=== PATIENT | male | born 1995 | race Caucasian/White ===

== ENCOUNTER 2017-12-17 10:46 | Day surgery (SDC) | payer MEDICARE, MEDICAID ==
[~2017-12-17] VITALS: Ht 182.9 cm; Wt 71.2 kg
[~2017-12-17 10:46] MED LIST: ACET325T49 PO; CALC500T7 PO; CLON0.5T3 PO; CLON1TAB27 PO; DIPH25TA31 PO; DIVA125T3 PO; EUCA1LOZ28 PO; GLYC1TAB11 PO; GUAI237L82 PO; IBUP200C75 PO; LAMO100T4 PO; LOPE-145 PO; MAGN400O7 PO; NPB.9O TP; TETR15DR74 OP
[2017-12-17 10:50] VITALS: BP 130/81
[2017-12-17] MEDS ORDERED: LACTATED RINGERS 1,000 ML IV PRN (10:57)
--- OUTSIDE RECORDS SUMMARY | 2017-12-17 11:15 | XMS REPORT ---
Author Author DOMO MCCANN [facility] eClinicalWorks Address Unknown Phone Unavailable Care Team Providers Care Iron Worker Apprentice Name Role Phone DOMO MCCANN CP Unavailable Allergies No Known Allergies Problems Problem Type Condition Code Onset Dates Condition Status Assessment Dental examination Z01.20 Active Problem Other general medical examination for administrative purposes V70.3 Active Medications No Known Medications Procedures Procedure Coding System Code Date INTRAORL-PERIAPICAL 1 FILM 67034 CPT-4 D0220 February 02, 2016 INTRAORL-PERIAPICAL EA ADD FILM CPT-4 D0230 February 02, 2016 COMP ORAL EVALUATION - NEW/EST PT CPT-4 D0150 February 02, 2016 INTRAORL-PERIAPICAL EA ADD FILM CPT-4 D0230 February 02, 2016 INTRAORL-PERIAPICAL EA ADD FILM CPT-4 D0230 February 02, 2016 BITEWINGS - TWO FILMS CPT-4 D0272 February 02, 2016 Results No Known Results Summary Purpose eClinicalWorks Submission
--- OUTSIDE RECORDS SUMMARY | 2017-12-17 11:15 | XMS REPORT ---
Author Author JACOB SPARKS Organization [facility] Address [address] [place] [address] Phone Unavailable Care Team Providers Care Chef French Name Role Phone JACOB SPARKS Unavailable Unavailable PROBLEMS Type Condition ICD9-CM Code [id number] Code Onset Dates Condition Status SNOMED Code Problem Other general medical examination for administrative purposes V70.3 Active [id number] ALLERGIES No Known Allergies SOCIAL HISTORY Never Assessed PLAN OF CARE Activity Details Follow Up WE WILL CALL [facility] Reason:RESTORATIVE WITH DR MCCANN VITAL SIGNS MEDICATIONS Medication Instructions Dosage Frequency Start Date End Date Duration Status LaMICtal ODT 100 MG Orally Twice a day 1 tablet on the tongue and allow to dissolve 12h Active Valproic Acid 250 MG/5ML Active Depakene by Oral route Jul, Active RESULTS No Results PROCEDURES Procedure Date Ordered Result Body Site PROPHYLAXIS - ADULT October 09, 2016 IMMUNIZATIONS No Known Immunizations MEDICAL (GENERAL) HISTORY Type Description Date Medical History Autism Medical History Seizures
--- OUTSIDE RECORDS SUMMARY | 2017-12-17 11:15 | XMS REPORT ---
Author Author LELO COLE [facility] eClinicalWorks Address Unknown Phone Unavailable Care Team Providers Care Flour Mixer Name Role Phone LELO COLE CP Unavailable Allergies, Adverse Reactions, Alerts Substance Reaction Event Type N.K.D.A. Info Not Available Non Drug Allergy Problems Problem Type Condition Code Onset Dates Condition Status Assessment Encounter for dental examination Z01.20 Active Problem Other general medical examination for administrative purposes V70.3 Active Medications Medication Code System Code Instructions Start Date End Date Status Dosage LaMICtal ODT [facility] [address]-08 100 MG Orally Twice a day 1 tablet on the tongue and allow to dissolve Valproic Acid [facility] [address]-94 250 MG/5ML Orally not defined Procedures Procedure Coding System Code Date BITEWINGS - TWO FILMS CPT-4 D0272 May 16, 2015 PROPHYLAXIS - ADULT CPT-4 D1110 May 16, 2015 PERIODIC ORAL EXAMINATION CPT-4 D0120 May 16, 2015 TOPICAL FLUORIDE VARNISH CPT-4 D1206 May 16, 2015 Vital Signs Date/Time: May 16, 2015 Blood Pressure Diastolic 82 mmHg Blood Pressure Systolic 115 mmHg Cardiac Monitoring Heart Rate 70 bpm Results No Known Results Summary Purpose eClinicalWorks Submission
--- OUTSIDE RECORDS SUMMARY | 2017-12-17 11:15 | XMS REPORT ---
Author Author JACOB SPARKS Organization [employer] Address Unknown Phone Unavailable Care Team Providers Care Manufacturing Automation Engineer Name Role Phone JACOB SPARKS CP Unavailable Allergies, Adverse Reactions, Alerts Substance Reaction Event Type N.K.D.A. Info Not Available Non Drug Allergy Problems Problem Type Condition Code Onset Dates Condition Status Assessment Encounter for dental examination and cleaning without abnormal findings Z01.20 Active Problem Other general medical examination for administrative purposes V70.3 Active Medications No Known Medications Procedures Procedure Coding System Code Date TOPICAL FLUORIDE VARNISH CPT-4 D1206 February 02, 2016 PROPHYLAXIS - ADULT CPT-4 D1110 February 02, 2016 Results No Known Results Summary Purpose eClinicalWorks Submission
--- OUTSIDE RECORDS SUMMARY | 2017-12-17 11:15 | XMS REPORT ---
Author Author DOMO MCCANN Organization [facility] Address [address] [place] [address] Care Team Providers Care Hand Cloth Examiner Name Role Phone DOMO MCCANN Unavailable PROBLEMS Type Condition ICD9-CM Code [id number] Code Onset Dates Condition Status SNOMED Code Problem Other general medical examination for administrative purposes V70.3 Active [id number] ALLERGIES No Information SOCIAL HISTORY Never Assessed PLAN OF CARE Activity Details Follow Up prn Reason:restorative VITAL SIGNS MEDICATIONS Unknown Medications RESULTS No Results PROCEDURES Procedure Date Ordered Result Body Site PERIODIC ORAL EXAMINATION October 09, 2016 BITEWINGS - FOUR FILMS October 09, 2016 IMMUNIZATIONS No Known Immunizations MEDICAL (GENERAL) HISTORY Type Description Date Medical History Autism Medical History Seizures
[2017-12-17] MEDS ORDERED: MIDAZOLAM SYRUP (VERSED) 10MG/5ML UDC PO ONE ×2 (11:43→12:00)
[2017-12-17] MEDS ORDERED: proPOfol 200 MG/20 ML (DIPRIVAN) VIAL IV ONE ×3 (12:11→13:24)
[2017-12-17] MEDS ORDERED: DEXAMETHASONE 10 MG/ML (DECADRON) 1 ML VIAL ONE (12:11)
[2017-12-17] MEDS ORDERED: fentaNYL INJECTION 100 MCG/2 ML AMP ONE (12:11)
[2017-12-17] MEDS ORDERED: ONDANSETRON 4 MG/2 ML (SDV) Z0FRAN ONE (12:11)
[2017-12-17] MEDS ORDERED: SEVOFLURANE (ULTANE) 15 ML INHAL SOLN ONE ×5 (12:11→13:24)
--- NOTE | 2017-12-17 12:22 | Progress Note-Pre Operative ---
Pre-Operative Progress Note H&P Reviewed The H&P was reviewed, patient examined and no changes noted. Date Seen by Provider: December 17, 2017 Time Seen by Provider: 12:22 Date H&P Reviewed: December 17, 2017 Time H&P Reviewed: 12:22 Pre-Operative Diagnosis: dental caries MIRIAM HODGSON DDS December 17, 2017 12:22 pm
[2017-12-17] MEDS ORDERED: APAP 325 MG/10.15 ML LIQ (TYLENOL) UDC PO ONE (12:30)
[2017-12-17] MEDS ORDERED: LIDOCAINE PF 2% 5 ML (XYLOCAINE) VIAL ONE (12:49)
[2017-12-17] MEDS ORDERED: SUCCINYLCHOLINE INJ 100 MG/5 ML SYR ONE (13:31)
--- NOTE | 2017-12-17 13:39 | Progress Note-Post Operative ---
Post-Operative Progess Note Surgeon (s)/Shoe Packer (s) Surgeon MIRIAM HODGSON DDS Shoe Packer: lili Pre-Operative Diagnosis dental caries Post-Operative Diagnosis same Procedure & Operative Findings Date of Procedure 12/17/17 Procedure Performed/Findings repair of carious teeth utilizing composite resin Anesthesia Type general Estimated Blood Loss Estimated blood loss (mL): none Specimens/Packing Specimens Removed none Packing: none MIRIAM HODGSON DDS December 17, 2017 1:39 pm
[2017-12-17] MEDS ORDERED: PHENYLEPHRINE 0.25% NASAL SPR (NEO-SYNEPHRINE) 15 ML NS ONE (13:48)
[2017-12-17 15:00] VITALS: BP 122/72
[2017-12-17 15:20] VITALS: BP 122/72
--- NOTE | 2017-12-17 15:42 | Anesthesia-General Post-Op ---
General Patient Condition Mental Status/LOC: Same as Preop Cardiovascular: Satisfactory Nausea/Vomiting: Absent Respiratory: Satisfactory Pain: Controlled Complications: Absent Post Op Complications Complications None Follow Up Care/Instructions Patient Instructions None needed. Anesthesia/Patient Condition Patient Condition Patient is doing well, no complaints, stable vital signs, no apparent adverse anesthesia problems. No complications reported per nursing. D/C home per [facility] Criteria: Yes DANIELITO RUBIO CRNA December 17, 2017 15:42
--- NOTE | 2017-12-18 13:44 | OPERATIVE REPORT ---
DATE OF SERVICE: 12/17/2017 PREOPERATIVE DIAGNOSIS: Dental caries. POSTOPERATIVE DIAGNOSIS: Dental caries. OPERATION PERFORMED: Repair of numerous carious teeth utilizing composite resin. DESCRIPTION OF PROCEDURE: The patient was treated on an outpatient basis and following suitable premedication, was taken to the operating room and placed in the supine position on the table. Anesthesia was induced. Orotracheal intubation was accomplished and general anesthesia was administered. A throat pack consisting of one wet 4 x 4 gauze sponge was placed in the oropharynx and maintained in place throughout the procedure. Mouth opening was maintained at all times with gentle digital pressure and no mechanical retractors of any kind were utilized. Caries was removed from teeth #10, 11, 19, 30 and 31 and composite resin then utilized to repair those teeth. The patient tolerated this quite brief procedure very nicely and following a thorough debridement of the oral cavity with a copious flow of water, adequate suction and compressed air. The throat pack was removed. The patient was extubated and taken to recovery in quite satisfactory condition. Job ID: [id number] DocumentID: [id number] Dictated Date: 12/18/2017 07:53:55 Enamel Pulverizer Date: 12/18/2017 13:43:22 Dictated By: MIRIAM HODGSON DDS
== END 2017-12-17 15:20 | disposition home or self-care (01) ==
LOC: SDC 10:46
PROVIDERS: ATTEND Dentist General Practice
DX: K02.9 Dental caries, unspecified (principal); F84.0 Autistic disorder; F70 Mild intellectual disabilities; F90.9 Attention-deficit hyperactivity disorder, unspecified type; R56.9 Unspecified convulsions; Z79.899 Other long term (current) drug therapy

== ENCOUNTER → 2018-09-19 | Outpatient (CLI) | payer MEDICARE, MEDICAID ==
[~2018-09-19] MED LIST changes: +CEPH-507 PO; +CLON0.5T13 PO; -CLON0.5T3 PO; -DIVA125T3 PO; +DIVA125T32 PO; +IBUP-2185 PO; -IBUP200C75 PO
--- NOTE | 2018-09-19 15:21 | Diagnostic Imaging Report ---
INDICATION: Fall with right ankle swelling and pain. TIME OF EXAM: 10:13 a.m. FINDINGS: Three views of the right ankle were obtained. Alignment is normal. Ankle mortise is well maintained. The talar dome is smooth. No fracture or dislocation is seen. There is moderate soft tissue swelling about the lateral ankle. IMPRESSION: Lateral ankle swelling. No acute bony abnormality is detected. Dictated by: Dictated on workstation # [id number]
== END ==
LOC: RAD 10:07
PROVIDERS: ATTEND Nurse Practitioner Family
DX: M25.471 Effusion, right ankle (principal); W19.XXXA Unspecified fall, initial encounter
CPT/HCPCS: 73610

== ENCOUNTER → 2018-12-31 | Outpatient (CLI) | payer MEDICARE, MEDICAID ==
--- NOTE | 2018-12-31 16:20 | Diagnostic Imaging Report ---
INDICATION: Elbow pain. COMPARISON: None. FINDINGS: Three radiographic views of the right elbow were obtained. There is an abnormal moderate joint effusion of the right elbow. A definite acute osseous abnormality is not conspicuous. There is linear lucency extending through the radial head but this has a nonacute appearance. Several small extraosseous calcifications are also noted adjacent to the distal margins of the lateral humerus and may be on the basis of old avulsion fractures. The joint spaces are maintained. No unexpected radiopaque foreign bodies are seen. IMPRESSION: 1. Moderate joint effusion of the right elbow but no definite acute fracture or dislocation. 2. Findings of probable previous avulsion fracture of the distal humerus and probable old radial head fracture. Followup in 14 days is recommended to assess for interval healing. Dictated by: Dictated on workstation # [id number]
== END ==
LOC: RAD 13:42
PROVIDERS: ATTEND Family Medicine
DX: M25.421 Effusion, right elbow (principal)
CPT/HCPCS: 73080

== ENCOUNTER → 2019-02-06 | Outpatient (CLI) | payer MEDICARE, MEDICAID ==
--- NOTE | 2019-02-06 13:43 | Diagnostic Imaging Report ---
INDICATION: Swelling and pain post fall TECHNIQUE: Three views of the right ankle CORRELATION STUDY: 09/19/2018 FINDINGS: There is a new bony defect adjacent to the medial aspect of the medial malleolus, changed from prior study, question of additional bone fragment projecting into the medial aspect of the talus. Distal fibula intact. Talar dome appears maintained. The ankle mortise preserved. Soft tissue swelling is present particularly laterally. This is less pronounced from prior study. IMPRESSION: There is a new bone fragment adjacent to the medial malleolus and perhaps the medial aspect of the of talus. This finding is indeterminate as to its age but is changed from study of only 5 months ago raising concern for a potential acute fracture. If further assessment is desired, CT imaging would be recommended. Dictated by: Dictated on workstation # [id number]
== END ==
LOC: RAD 12:22
PROVIDERS: ATTEND Nurse Practitioner Family
DX: M25.471 Effusion, right ankle (principal); W19.XXXA Unspecified fall, initial encounter
CPT/HCPCS: 73610

== ENCOUNTER → 2022-04-16 | Outpatient (CLI) | payer MEDICARE, MEDICAID ==
[~2022-04-16] MED LIST changes: -CLON0.5T13 PO; +CLON0.5T4 PO; -LOPE-145 PO; +LOPE-175 PO
--- NOTE | 2022-04-16 16:10 | Diagnostic Imaging Report ---
EXAM: Left ankle. FINDINGS: 3 views. The ankle mortise is in good alignment. Joint spaces are well-maintained. The articulating surfaces are smooth. There are no fractures. Mild soft tissue swelling is noted about the lateral malleolus and medial malleolus. IMPRESSION: Soft tissue swelling with no bony abnormalities noted. Dictated by: Dictated on workstation # [id number]
== END ==
LOC: RAD 11:49
PROVIDERS: ATTEND Nurse Practitioner Family
DX: R60.0 Localized edema (principal); M25.572 Pain in left ankle and joints of left foot; M79.89 Other specified soft tissue disorders
CPT/HCPCS: 73610